=== PATIENT | male | born 1975 | race Caucasian/White ===

== ENCOUNTER 2017-07-22 14:23 | Emergency (ER) | payer MEDICAID ==
[~2017-07-22] VITALS: Ht 167.6 cm; Wt 49.9 kg
--- NOTE | 2017-07-22 14:42 | Emergency Room Report ---
History of Present Illness General Chief Complaint: Bug bites Present Illness HPI 42 yo male patient presents to ER complaining of bug bites x1 day. Patient reports living in a fci and waking up with bites all over his body. Reports used a lotion earlier today, does not remember name of lotion, from previous bug bite infestation without relief of symptoms. Denies use of other medications. Reports extreme pruritus. Denies contacts with similar symptoms. Denies fever, chest pain, SOB, nausea, vomiting. Allergies: Coded Allergies: No Known Allergies (Unverified , 07/22/17) Patient History Past Medical History: see triage record Reviewed Nursing Documentation: PMH: Agreed; PSxH: Agreed Review of Systems All Other Systems: negative except mentioned in HPI Physical Exam Sp02 EP Interpretation: reviewed, normal General Appearance: well appearing, no apparent distress, alert, GCS 15, non- toxic Head: normocephalic, atraumatic Eyes: bilateral eye normal inspection, bilateral eye PERRL ENT: hearing grossly normal, normal pharynx, no angioedema, normal voice, uvula midline, moist mucus membranes Neck: full range of motion Respiratory: lungs clear, normal breath sounds, no rhonchi, no respiratory distress, no accessory muscle use, no wheezing, speaking full sentences Cardiovascular #1: regular rate, rhythm, no edema Gastrointestinal: non tender, soft, no mass, non-distended, no guarding, no rebound Musculoskeletal: back normal, digits/nails normal, gait/station normal, normal range of motion, non-tender Neurologic: alert, oriented x3, responsive, motor strength/tone normal, sensory intact Skin: rash - diffuse maculopapular rash over entire body, erythema and edema, no central scaling, no vesicles, no draining, mary with pressure, no TTP, no linear burrows Medical Decision Making PA Attestation Dr. Grady is my supervising Physician whom patient management has been discussed with. Diagnostic Impression: Primary Impression: Bed bug bite ER Course Pt. presents to the ED c/o bug bite. Ddx considered but are not limited to atopic dermatitis, bug bite, urticaria, allergic reaction. Vital signs: are WNL, pt. is afebrile ORDERS: Dexamethasone Benadryl ER COURSE: No chest pain, SOB, abdominal pain, angioedema Need cleaning of everything with heat treatment. Patient reports improvement in symptoms following medication. Patient OK for discharge to home. DISCHARGE: -Rx given for Benadryl for pruritis. SE may cause drowsiness. -Rx given for prednisone -Rx for Tylenol, take following completion of prednisone for pain symptoms. -Patient instructed to apply warm compresses to affected area. At this time pt. is stable for d/c to home. Patient resting comfortably, in no acute distress, nontoxic appearing. Care plan and follow up instructions have been discussed with the patient prior to discharge. Patient provided with printed patient care instructions, and any necessary prescriptions. Patient instructed to follow-up with primary care provider in 3 - 5 days. Patient questions asked and answered. Patient reports understanding and agreement to treatment plan. ER precautions given. Patient instructed to return to ER immediately for any new or worsening of symptoms including but not limited to increasing SOB, persistent fever. Disposition: HOME, SELF-CARE Condition: Stable Scripts Acetaminophen* (TYLENOL EXTRA STRENGTH*) 500 Mg Tablet 500 MG ORAL Q8H PRN for Prn Headache/Temp > 101, #30 TAB 0 Refills Prov: Jorge Louis 07/22/17 Diphenhydramine Hcl* (BENADRYL*) 25 Mg Capsule 25 MG ORAL Q6H PRN for Itching for 7 Days, #30 CAP Prov: Jorge Louis 07/22/17 Prednisone* (PREDNISONE*) 20 Mg Tablet 40 MG ORAL DAILY for 4 Days, #8 TAB Prov: Jorge Louis 07/22/17 Patient Instructions: Bedbugs, [id number] Additional Instructions: Followup with primary care provider in 3 -5 days. Discuss further treatment and referral at that time. Take medications as directed. Patient questions asked and answered. ER precautions given, patient instructed to return to ER immediately for any new or worsening of symptoms. Jorge Louis Jul 22, 2017 14:42
[2017-07-22 14:44] VITALS: BP 102/44
[2017-07-22] MEDS ORDERED: Dexamethasone 4mg/ml vial IM ONE (15:00)
[2017-07-22] MEDS ORDERED: PREDNISONE20 MG ORAL (15:39)
[2017-07-22] MEDS ORDERED: BENADRYL25 MG ORAL (15:39)
[2017-07-22] MEDS ORDERED: TYLENOL EXTRA500 MG ORAL (15:39)
[2017-07-22 16:05] VITALS: BP 102/44
== END 2017-07-22 16:05 | disposition home or self-care (01) ==
LOC: EMR 14:41
DX: R21 Rash and other nonspecific skin eruption (principal); W57.XXXA Bitten or stung by nonvenomous insect and other nonvenomous arthropods, initial encounter; Y92.9 Unspecified place or not applicable
CPT/HCPCS: 96372; 99284; J1100